=== PATIENT | male | born 2000 | race Hispanic/Latino ===

== ENCOUNTER 2022-01-21 14:43 | Emergency (ER) | payer MEDICAID ==
[~2022-01-21] VITALS: Ht 165.1 cm; Wt 81.6 kg
[2022-01-21 14:47] VITALS: BP 104/34
== END 2022-01-21 17:01 | disposition home or self-care (01) ==
LOC: EDH 14:43
DX: U07.1 COVID-19 (principal)
CPT/HCPCS: 99284; 71045; 87635; 87880; 87804 ×2; C9803